=== PATIENT | male | born 2000 | race African-American/Black ===

== ENCOUNTER 2021-07-31 16:30 | Observation (INO) | payer OTHER ==
[~2021-07-31] VITALS: Ht 167.6 cm; Wt 87.5 kg
--- NOTE | ~2021-07-31 | O ---
[facility] [place] [address] OPERATIVE REPORT Name: TERE GUPTA Room #: 442-P [facility] M.R.#: [id number] Admission: 07/31/21 Attend Phys: Kenny Posada MD Discharge: Date of : 2 Report #: [id number] THIS REPORT FOR: cc: FAM - No family physician/PCP FAM - No family physician/PCP Brock Johnson MD ~ DATE OF SERVICE: 08/01/2021 PREOPERATIVE DIAGNOSIS: Ischiorectal abscess. POSTOPERATIVE DIAGNOSIS: Ischiorectal abscess. OPERATION: Incision and drainage of ischiorectal abscess. SURGEON: Brock Johnson MD ANESTHESIA: General. ESTIMATED BLOOD LOSS: Minimal. SPECIMENS: None. DESCRIPTION OF PROCEDURE: After informed consent was obtained, the patient was brought to the operating room and placed supine. SCDs were placed and working, preoperative antibiotics were administered, general anesthesia was induced. The patient was placed in the lithotomy position. The area was then prepped and draped in the usual sterile fashion. He had an area of fluctuance anterior and to the left side. This was approximately 1 cm from the anal verge. I incised the area of fluctuance 1.5 cm. Immediately, pus was drained. Loculations were broken up bluntly. Area was irrigated with saline. It was packed with sterile gauze. Sterile dressings were applied. COMPLICATIONS: None. DISPOSITION: The patient was taken to recovery in satisfactory condition. By: [id number] Brock Johnson MD /nt
[2021-07-31 16:32] VITALS: BP 135/93
[2021-07-31 17:18] LABS: HEMATOCRIT 43.4 % (42.0-52.0); HEMOGLOBIN 14.9 gm/dL (14.0-18.0); MCH 28.7 pg (26.0-34.0); MCHC 34.2 g/dL (28.0-37.0); MCV 83.9 fL (80.0-100.0); PLATELET COUNT 229 thou/uL (150-400); RBC 5.18 mil/uL (4.50-6.00); RDW 12.8 % (10.5-14.5); WBC 21.1 thou/uL (4.0-11.0)
[2021-07-31 17:27] LABS: CALCIUM 9.2 mg/dL (8.5-10.1); CREATININE 1.2 mg/dL (0.7-1.3); POTASSIUM 3.5 mmol/L (3.5-5.1)
[2021-07-31 17:32] LABS: ALBUMIN 4.1 g/dL (3.4-5.0); TOTAL BILIRUBIN 0.6 mg/dL (0.2-1.0); TOTAL PROTEIN 8.3 g/dL (6.4-8.2)
[2021-07-31 17:49] LABS: ABSOLUTE NEUTROPHILS 17.1 thou/uL (1.4-8.2)
[2021-07-31 20:37] VITALS: BP 124/78
[2021-07-31 22:05] VITALS: BP 129/77
--- NOTE | 2021-08-01 01:48 | NUR ---
ARRIVED TO UNIT WITH ED RN. A&OX4. UP AD SHERICE. VS STABLE. RA. NO VOIDING ISSUES REPORTED. LEFT BACK THIGH SWOLLEN. FIRM TO TOUCH. PAIN TREATED PER PRN PAIN MED ORDER. NPO FOR AM PROCEDURE. NO OTHER ISSUES NOTED. WILL CONTINUE TO MONITOR.
[2021-08-01 05:43] LABS: BASOPHILS 0.1 % (0.0-2.0); EOSINOPHILS 0.6 % (0.0-3.0); HEMATOCRIT 40.4 % (42.0-52.0); HEMOGLOBIN 13.2 gm/dL (14.0-18.0); LYMPHOCYTES 13.9 % (24.0-44.0); MCH 27.7 pg (26.0-34.0); MCHC 32.6 g/dL (28.0-37.0); MONOCYTES 9.4 % (1.0-8.0); PLATELET COUNT 203 thou/uL (150-400); RBC 4.76 mil/uL (4.50-6.00); RDW 12.9 % (10.5-14.5); WBC 15.7 thou/uL (4.0-11.0)
[2021-08-01 08:09] VITALS: BP 134/90
--- NOTE | 2021-08-01 09:57 | NUR ---
NURITION: PT SCREEN FOR DX OF SEPSIS, CELLULITIS. PT WITH PERIANAL ABCESS AND HAS BEEN NPO FOR I&D TODAY. PT REPORTED UNINTENTIONAL WT LOSS ON ADMISSION ASSESSEMENT, BUT DENIED POOR INTAKE. WHEN ASKED, PT STATED WT LOSS WAS D/T "SMOKING" AND THAT HE HAS GOOD APPETITE, "DEPENDS ON HOW MAY PORTIONS I TAKE." H&P NOTED PT WITH DAILY MARIJUANA HABIT AND VAPING EVERY OTHER DAY. PT DENIED ANY CONCERNS OR NEEDS WHEN DIET ADVANCED. ALBUMIN WNL. MEDS REVIEWED. ASSESSED AT LOW NUTRIITON RISK.
[2021-08-01 19:00] VITALS: BP 134/82
[2021-08-01 19:36] VITALS: BP 134/82
--- NOTE | 2021-08-01 21:52 | NUR ---
PT WAS BROUGHT BACK FROM PACU IMMEDIATELY AFTER SHIFT CHANGE.VSS.PT WAS LATER DISCHARGED AT 2009.IV SITE DC AND PT LEFT WITH ALL HIS PERSONAL BELONGINGS IN THE COMPANY OF FAMILY.
== END 2021-08-01 20:10 | disposition home or self-care (01) ==
LOC: ER 16:30 → 4S 21:02
PROVIDERS: Nurse Practitioner Family; Physician Assistant Medical; ADMIT Surgery; ATTEND Surgery
DX: K61.39 Other ischiorectal abscess (principal); Z20.822 Contact with and (suspected) exposure to COVID-19; L03.317 Cellulitis of buttock; Z79.899 Other long term (current) drug therapy
CPT/HCPCS: 10195; 50010; 50101; 50386; 57092; 62110; 62900; 70005